=== PATIENT | female | born 1990 | race Caucasian/White ===

== ENCOUNTER 2024-05-17 16:08 | Emergency (ER) | payer SELFPAY ==
[2024-05-17 16:17] VITALS: BP 143/86; PULSE 79; TEMP 37.2; O2SAT 96; BMI 34.0
--- NOTE | 2024-05-17 16:26 | ED.GENADUL1 ---
HPI HPI - General Adult General Chief complaint: Upper Respiratory Infection Stated complaint: Upper Respiratory Infection Time Seen by Provider: 05/17/24 16:09 Source: patient Mode of arrival: walk-in Limitations: no limitations History of Present Illness HPI narrative: Patient is a 33-year-old female who presents to the emergency department for 3-day history of upper respiratory symptoms. She reports cough, nasal drainage and right ear pressure. She has had occasional green sputum with coughing. She is not concerned for . No medications taken prior to arrival other than Motrin this morning. She would further like to have evaluated an area on her chest and abdomen. She states she has had sores for several years to the abdomen that she believes may need antibiotics. The areas have been intermittently draining. Related Data Home Medications ?Medication ?Instructions ?Recorded ?Confirmed No Known Home Medications 05/17/24 05/17/24 Previous Rx's ?Medication ?Instructions ?Recorded promethazine 25 mg tablet 25 mg PO Q6H PRN nausea and 05/17/24 vomiting #12 tabs sulfamethoxazole 800 1 tab PO BID 10 days #20 tabs 05/17/24 mg-trimethoprim 160 mg tablet (Bactrim DS) Allergies Allergy/AdvReac Type Severity Reaction Status Date / Time amoxicillin Allergy Rash Verified 05/17/24 16:17 ketorolac (From Toradol) Allergy Palpitation Verified 05/17/24 16:17 s Penicillins Allergy Rash Verified 05/17/24 16:17 prednisone AdvReac Mild Anxiety Verified 05/17/24 16:17 Opioid HPI Opioid Management Most Recent Opioid Data: No Data to Display Review of Systems ROS Constitutional Reports: fever; Denies: chills Ears, nose, mouth, and throat Reports: throat pain, nasal discharge and nasal congestion Cardiovascular Denies: chest pain Respiratory Reports: cough; Denies: shortness of breath Gastrointestinal Denies: nausea or vomiting Integumentary/Breast Reports: rash, redness, skin pain and sores Neurological Denies: numbness in extremities or weakness in extremities Hematologic/Lymphatic Denies: easy bruising or easy bleeding PFSH PFSH Social History Little interest or pleasure in doing things: not at all Feeling down, depressed, or hopeless: not at all Exam Narrative Exam Narrative: Gen.: Awake, alert, in no distress Head: Normocephalic, atraumatic ENT: Moist mucous membranes, bilateral TMs are mildly fluid-filled with no erythema or injection. Pharynx without erythema. No tonsillar edema or exudate. Uvula midline. Respiratory: No respiratory distress, lungs clear bilaterally, dry cough noted with no wheezing or rhonchi Cardio: Regular rate and rhythm Extremities: Moves extremities equally, no injuries noted Psych: Normal mood and affect Neuro: No focal neuro deficit Skin: Warm, dry, multiple open sores to the left flank, abdomen. Some sores are open and draining, other areas are slightly raised and erythematous. No large fluctuant abscess noted Constitutional Vital Signs, click to edit/add: Last Vital Signs Temp 98.9 F 05/17/24 16:17 Pulse 79 05/17/24 16:17 Resp 20 05/17/24 16:17 BP 143/86 H 05/17/24 16:17 Pulse Ox 96 05/17/24 16:17 O2 Del Method Room Air 05/17/24 16:17 Course Vital Signs Vital signs: Vital Signs Temperature 98.9 F 05/17/24 16:17 Pulse Rate 79 05/17/24 16:17 Respiratory Rate 20 05/17/24 16:17 Blood Pressure 143/86 H 05/17/24 16:17 Pulse Oximetry 96 05/17/24 16:17 Oxygen Delivery Method Room Air 05/17/24 16:17 Temperature 98.9 F 05/17/24 16:17 Pulse Rate 79 05/17/24 16:17 Respiratory Rate 20 05/17/24 16:17 Blood Pressure 143/86 H 05/17/24 16:17 Pulse Oximetry 96 05/17/24 16:17 Oxygen Delivery Method Room Air 05/17/24 16:17 Medical Decision Making MDM Narrative Medical decision making narrative: Patient is negative for flu and COVID. She is hemodynamically stable with evidence of likely MRSA skin infection to her left flank. No large fluctuant abscesses at this time. Patient request Bactrim only for antibiotic coverage as she has significant financial difficulty and believes that the Bactrim will work well for her she has had it in the past. She was instructed to take [id number] cough medications that she can afford. She is given Phenergan as well which should be inexpensive. Apply warm compresses and return to the ER if symptoms change or worsen SUPERVISED APC VISIT, PHYSICIAN ATTESTATION: Based on the medical record the care appears appropriate. ? Medical Records Medical records reviewed: Yes I reviewed the patient's medical records Lab Data Lab results reviewed: Yes I reviewed the patient's lab results Labs: Lab Results 05/17/24 Range/Units 16:25 Influenza Type A Ag Negative Influenza Type B Ag Negative SARS-CoV-2 Ag (CV2AG) Negative (NEGATIVE) Discharge Plan Discharge Chief Complaint: Upper Respiratory Infection Clinical Impression: Upper respiratory infection, Wound infection Patient Disposition: Home, Self-Care Time of Disposition Decision: 17:02 Condition: Good Prescriptions / Home Meds: New sulfamethoxazole-trimethoprim [Bactrim DS] 800-160 mg tablet 1 tab PO BID 10 Days Qty: 20 0RF promethazine 25 mg tablet 25 mg PO Q6H PRN (Reason: nausea and vomiting) Qty: 12 0RF No Action No Known Home Medications Print Language: Citizen Of [place] Instructions: MRSA (Methicillin-Resistant Staphylococcus Aureus) (ED), Upper Respiratory Infection (ED) Referrals: Physician,Non-Staff, MD [Primary Care Provider] - 1 week
[2024-05-17 16:50] LABS: Influenza Virus A Antigen Negative; Influenza Virus B Antigen Negative; Internal Control Within Normal Limits; SARS-CoV-2 Ag NEGATIVE (NEGATIVE)
== END 2024-05-17 17:11 | disposition home or self-care (01) ==
PROVIDERS: Physician Assistant; Emergency Provider Student in an Organized Health Care Education/Training Program
DX: J06.9 Acute upper respiratory infection, unspecified (principal); S31.104A Unspecified open wound of abdominal wall, left lower quadrant without penetration into peritoneal cavity, initial encounter; B96.89 Other specified bacterial agents as the cause of diseases classified elsewhere
CPT/HCPCS: 87804; 87811; 99284